=== PATIENT | male | born 1945 | race Caucasian/White ===

== ENCOUNTER 2018-09-20 14:06 | Outpatient (CLI) | payer MEDICARE, OTHER, SELFPAY ==
[2018-09-20 15:55] LABS: CREATININE 1.02 mg/dL (0.70-1.30)
== END 2018-09-20 14:26 ==
PROVIDERS: PCP Emergency Medicine; Visit Provider Surgery Vascular Surgery
DX: I71.01 Dissection of thoracic aorta (principal)
CPT/HCPCS: 36415; 82565

== ENCOUNTER 2018-12-20 13:58 | Outpatient (CLI) | payer MEDICARE, OTHER, SELFPAY ==
--- NOTE | 2018-12-20 13:45 | DI.RAD_ITS ---
SYMPTOM/DIAGNOSIS: LT SHOULDER AND SCAPULA PAIN LEFT SHOULDER: There is deformity of the distal clavicle which could be related to an old fracture. There is spurring at the undersurface of the acromion. There is mild spurring at the glenoid. The glenohumeral joint space is well maintained. A stent is noted in the aorta. IMPRESSION: Mild degenerative changes.
== END 2018-12-20 14:18 ==
PROVIDERS: PCP Emergency Medicine; Referring Provider Emergency Medicine; Visit Provider Student in an Organized Health Care Education/Training Program
DX: M19.012 Primary osteoarthritis, left shoulder; M75.82 Other shoulder lesions, left shoulder
CPT/HCPCS: 20610; 99202; 99214; 73030; J1040

== ENCOUNTER → 2019-01-31 13:13 | Outpatient (BNVA) | payer MEDICARE, OTHER, SELFPAY | PROVIDERS: PCP Emergency Medicine; Referring Provider Emergency Medicine; Visit Provider Student in an Organized Health Care Education/Training Program | DX: M25.512 Pain in left shoulder (principal); M75.82 Other shoulder lesions, left shoulder | CPT/HCPCS: 99212; 99213 ==

== ENCOUNTER → 2019-03-14 12:53 | Outpatient (BNVA) | payer MEDICARE, OTHER, SELFPAY | PROVIDERS: PCP Emergency Medicine; Referring Provider Emergency Medicine; Visit Provider Student in an Organized Health Care Education/Training Program | DX: M25.512 Pain in left shoulder (principal); M75.82 Other shoulder lesions, left shoulder | CPT/HCPCS: 99212; 99213 ==

== ENCOUNTER → 2019-07-18 14:21 | Outpatient (BNVA) | payer MEDICARE, OTHER, SELFPAY | PROVIDERS: PCP Emergency Medicine; Referring Provider Emergency Medicine; Visit Provider Student in an Organized Health Care Education/Training Program | DX: M75.82 Other shoulder lesions, left shoulder (principal); M75.22 Bicipital tendinitis, left shoulder; Z98.890 Other specified postprocedural states | CPT/HCPCS: 20610; 99213; J1040 ==

== ENCOUNTER → 2019-09-05 13:39 | Outpatient (BNVA) | payer MEDICARE, OTHER, SELFPAY | PROVIDERS: PCP Emergency Medicine; Referring Provider Emergency Medicine; Visit Provider Student in an Organized Health Care Education/Training Program | DX: M75.22 Bicipital tendinitis, left shoulder (principal); M19.012 Primary osteoarthritis, left shoulder; M75.82 Other shoulder lesions, left shoulder | CPT/HCPCS: 99213 ==

== ENCOUNTER → 2019-11-07 13:33 | Outpatient (BNVA) | payer MEDICARE, OTHER, SELFPAY | PROVIDERS: PCP Emergency Medicine; Referring Provider Emergency Medicine; Visit Provider Student in an Organized Health Care Education/Training Program | DX: M75.22 Bicipital tendinitis, left shoulder (principal) | CPT/HCPCS: 99213 ==

== ENCOUNTER 2020-08-09 01:43 | Outpatient (CLI) | payer MEDICARE, OTHER, SELFPAY ==
--- NOTE | 2020-08-09 08:15 | DI.RAD_ITS ---
EXAM: RF JOINT INJECTION FLUORO GUID CLINICAL HISTORY: L SHOULDER INJ UNDER FLUORO,BICEPS TENDINITIS, LT SHOULDER PAIN,M75.22 TECHNIQUE: 2D and realtime digital imaging was performed. CONTRAST MATERIAL: Refer to procedure report. COMPARISON: No exams were available for comparison FINDINGS: Fluoroscopy was provided for Dr. Hill during the performance of a left shoulder injection. Plea se refer to the procedure report for complete details. Fluoro time: 11 seconds IMPRESSION:
[2020-08-09] MEDS: Bupivacaine 0.5% Pres-Free 10 ML VIAL 5 ML IJ (14:59)
[2020-08-09] MEDS: methylPREDNISolone ACETATE 80 MG/ML VIAL IM (15:00)
[2020-08-09] MEDS: Omnipaque 300 MG/ML 10 ML BTL IJ (15:01)
--- NOTE | 2020-08-09 23:18 | W.PROCNOTE ---
Date of service: 08/09/20 Time of Service: 14:18 Procedure Note Date of procedure: 08/09/20 Procedure: Right Shoulder Injection Surgeon/Proceduralist/Physician: Bulmaro Hill Procedure Diagnosis: Left Rotator Cuff Tendinitis Procedure Indications: Travis has had persistent pain of the LEFT shoulder. Noninvasive measures have been tried. To serve as both diagnostic and therapeutic, an injection under fluoroscopy was recommended. I had discussed the risks of the procedure and the patient elected to proceed. Procedure Description: Travis was greeted in the flouroscopy room. The correct side was identified and the consent was reviewed with the patient and signed. The patient was then placed in the supine position on the fluoroscopy table. The LEFT shoulder was then prepped with Chloraprep. The anterior injection starting point was identiifed by bony landmarks and fluoroscopy. The skin and soft tissue in the tract of the injection was anesthetized with 1% Lidocaine. A spinal needle was then inserted deep into the shoulder joint at the level of the recess between the glenoid and superior humeral head. A small amount of Omnipaque solution was injected to confirm intraarticular placement. Once confirmed, the shoulder was injected with 4cc of 0.5% Bupivicaine and 80mg of Depo-Medrol. A bandaid was placed on the injection site. The patient tolerated the procedure well and noted improvement in pre-injection pain.
== END 2020-08-09 02:03 ==
PROVIDERS: PCP Emergency Medicine; Visit Provider Student in an Organized Health Care Education/Training Program
DX: M75.82 Other shoulder lesions, left shoulder (principal); M25.552 Pain in left hip
CPT/HCPCS: 20610; 77002; J1040

== ENCOUNTER → 2020-09-10 11:01 | Outpatient (BNVA) | payer MEDICARE, OTHER, SELFPAY | PROVIDERS: PCP Emergency Medicine; Referring Provider Emergency Medicine; Visit Provider Student in an Organized Health Care Education/Training Program | DX: M75.22 Bicipital tendinitis, left shoulder (principal); M19.012 Primary osteoarthritis, left shoulder; M75.82 Other shoulder lesions, left shoulder; Z98.890 Other specified postprocedural states | CPT/HCPCS: 99212 ==

== ENCOUNTER 2020-11-16 14:08 | Outpatient (CLI) | payer MEDICARE, OTHER, SELFPAY ==
[2020-11-18 10:32] LABS: COVID-19 RT-PCR Result NEGATIVE (Negative)
== END 2020-11-16 14:28 ==
PROVIDERS: PCP Emergency Medicine; Visit Provider Emergency Medicine
DX: Z20.822 Contact with and (suspected) exposure to COVID-19 (principal)
CPT/HCPCS: U0003

== ENCOUNTER 2020-11-21 01:52 | Outpatient (CLI) | payer MEDICARE, OTHER, SELFPAY ==
--- NOTE | 2020-11-21 12:32 | DI.RAD_ITS ---
EXAM: XR CHEST 2V PA LATERAL INDICATION: Cough,R05. COMPARISON: CT CHEST WITH CONTRAST from 09/15/2017 CT from 09/15/2017 CT CHEST WITH CONTRAST from 09/15/2017 TECHNIQUE: 2D digital imaging was performed. FINDINGS: Heart size is within normal limits. A stent is again noted from the aortic arch through the the desc ending aorta. There is minimal linear scarring at the lung bases. The lungs are otherwise clear. N o infiltrate or effusion is seen. IMPRESSION: No acute abnormality. DATA REPOSITORY: RADIATION DOSE DELIVERED:
== END 2020-11-21 02:12 ==
PROVIDERS: PCP Emergency Medicine; Visit Provider Emergency Medicine
DX: R05 Cough (principal)
CPT/HCPCS: 71046

== ENCOUNTER 2020-11-21 03:15 | Outpatient (CLI) | payer MEDICARE, OTHER, SELFPAY ==
[2020-11-21 11:56] LABS: HCT 31.8 % (40.0-50.0); HGB 10.6 g/dL (13.5-17.5); MCH 33.9 pg (27.0-33.0); MCHC 33.3 % (32.0-36.0); MCV 101.6 fL (80-95); MPV 11.9 fL (8.0-11.0); Platelet Count 333 10^3/uL (130-400); RBC 3.13 10^6/uL (4.36-5.78); RDW 17.1 % (11.8-14.1); RDW-SD 63.7 fL; WBC 9.26 10^3/uL (4.4-10.8)
[2020-11-21 13:33] LABS: ALT 29 U/L (16-63); AST 20 U/L (15-37); Albumin 3.9 g/dL (3.4-5.0); Alkaline Phosphatase 92 U/L (46-116); Anion Gap 6.7 mmol/L (3-11); BUN 18 mg/dL (7-18); Bilirubin, Total 2.1 mg/dL (0.2-1.0); CO2 28.3 mmol/L (21.0-32.0); CREATININE 1.32 mg/dL (0.70-1.30); Calcium 8.7 mg/dL (8.5-10.1); Chloride 104 mmol/L (98-107); Estimated GFR 53.02 (mL/min/1.73m2); Glucose 140 mg/dL (74-106); Potassium 4.1 mmol/L (3.5-5.1); Sodium 139 mmol/L (136-145); Total Protein 6.7 g/dL (6.4-8.2)
[2020-11-21 14:26] LABS: Folate 18.2 ng/mL (8.6-20.0); Vitamin B12 988 pg/mL (193-986)
[2020-11-21 14:44] LABS: LDH 171 U/L (85-227)
[2020-11-24 09:28] LABS: Methylmalonic Acid 0.28 nmol/mL (<=0.40)
== END 2020-11-21 03:35 ==
PROVIDERS: PCP Emergency Medicine; Visit Provider Emergency Medicine
DX: D64.9 Anemia, unspecified (principal); R05 Cough
CPT/HCPCS: 36415; 80053; 80186; 85027; 71046; 82607; 82746; 83615; 86140

== ENCOUNTER 2021-01-10 02:47 | Outpatient (CLI) | payer MEDICARE, OTHER, SELFPAY ==
[2021-01-10 12:50] LABS: Abs Immature Grans 0.03 10^3/uL (0.0-0.06); Absolute Basophil Count 0.12 10^3/uL (0.0-0.2); Absolute Eosinophil Count 0.07 10^3/uL (0.0-0.7); Absolute Lymphocyte Count 1.54 10^3/uL (1.2-3.4); Absolute Neutrophil Count 5.12 10^3/uL (1.2-6.7); Basophils % 1.6; Eosinophils % 0.9; HCT 31.2 % (40.0-50.0); HGB 10.5 g/dL (13.5-17.5); Immature Grans % 0.4; Lymphocytes % 20.1; MCH 34.8 pg (27.0-33.0); MCHC 33.7 % (32.0-36.0); MCV 103.3 fL (80-95); MPV 11.4 fL (8.0-11.0); Monocytes % 10.4; Neutrophils % 66.6; Nucleated RBC 1 %; Platelet Count 298 10^3/uL (130-400); RBC 3.02 10^6/uL (4.36-5.78); RDW 17.2 % (11.8-14.1); RDW-SD 66.1 fL; Reticulocyte 1.4 % (0.5-2.4); WBC 7.68 10^3/uL (4.4-10.8)
[2021-01-10 13:43] LABS: Iron 190 ug/dL (65-175); Total Iron Binding Capacity 311 ug/dL (250-450); Transferrin Sat 61 % (20-55)
[2021-01-10 14:06] LABS: Ferritin 323 ng/mL (26-388); TSH 2.43 uIU/mL (0.36-3.74)
[2021-01-10 14:19] LABS: LDH 162 U/L (85-227)
[2021-01-11 12:40] LABS: Albumin 62.3 % (55.8-66.1); Total Protein 6.8 g/dL (6.3-8.2)
[2021-01-11 18:04] LABS: Erythropoietin 23.9 mIU/mL (2.6 - 18.5)
== END 2021-01-10 02:48 | disposition home or self-care (01) ==
PROVIDERS: PCP Emergency Medicine; Visit Provider Internal Medicine Hematology & Oncology
DX: D64.9 Anemia, unspecified (principal)
CPT/HCPCS: 36415; 82668; 82728; 83540; 83550; 83615; 84165; 84443; 85025; 85045; 86880

== ENCOUNTER 2021-04-11 02:45 | Outpatient (CLI) | payer MEDICARE, OTHER, SELFPAY ==
[2021-04-11 13:10] LABS: Abs Immature Grans 0.03 10^3/uL (0.0-0.06); Absolute Basophil Count 0.16 10^3/uL (0.0-0.2); Absolute Eosinophil Count 0.22 10^3/uL (0.0-0.7); Absolute Lymphocyte Count 1.67 10^3/uL (1.2-3.4); Absolute Monocyte Count 0.91 10^3/uL (0.1-0.8); Absolute Neutrophil Count 8.12 10^3/uL (1.2-6.7); Basophils % 1.4; HCT 31.3 % (40.0-50.0); HGB 10.5 g/dL (13.5-17.5); Immature Grans % 0.3; MCH 34.3 pg (27.0-33.0); MCHC 33.5 % (32.0-36.0); MCV 102.3 fL (80-95); Monocytes % 8.2; Neutrophils % 73.1; Nucleated RBC 0 %; Platelet Count 302 10^3/uL (130-400); RBC 3.06 10^6/uL (4.36-5.78); RDW 17.5 % (11.8-14.1); RDW-SD 66.4 fL; WBC 11.11 10^3/uL (4.4-10.8)
== END 2021-04-11 02:46 | disposition home or self-care (01) ==
LOC: LBO 02:45
PROVIDERS: PCP Emergency Medicine; Visit Provider Internal Medicine Hematology & Oncology
DX: D64.9 Anemia, unspecified (principal)
CPT/HCPCS: 36415; 85025

== ENCOUNTER 2021-04-25 13:53 | Outpatient (CLI) | payer MEDICARE, OTHER, SELFPAY ==
[2021-04-25 14:34] LABS: Abs Immature Grans 0.03 10^3/uL (0.0-0.06); Absolute Basophil Count 0.16 10^3/uL (0.0-0.2); Absolute Eosinophil Count 0.14 10^3/uL (0.0-0.7); Absolute Lymphocyte Count 1.93 10^3/uL (1.2-3.4); Absolute Monocyte Count 0.83 10^3/uL (0.1-0.8); Absolute Neutrophil Count 6.63 10^3/uL (1.2-6.7); Basophils % 1.6; Eosinophils % 1.4; HCT 32.3 % (40.0-50.0); HGB 10.9 g/dL (13.5-17.5); Immature Grans % 0.3; Lymphocytes % 19.9; MCH 34.9 pg (27.0-33.0); MCHC 33.7 % (32.0-36.0); MCV 103.5 fL (80-95); MPV 11.6 fL (8.0-11.0); Monocytes % 8.5; Neutrophils % 68.3; Nucleated RBC 0 %; Platelet Count 349 10^3/uL (130-400); RBC 3.12 10^6/uL (4.36-5.78); RDW 17.5 % (11.8-14.1); RDW-SD 66.3 fL; WBC 9.72 10^3/uL (4.4-10.8)
[2021-04-25 15:33] LABS: ALT 20 U/L (16-63); AST 15 U/L (15-37); Albumin 4.1 g/dL (3.4-5.0); Alkaline Phosphatase 101 U/L (46-116); Anion Gap 5.6 mmol/L (3-11); BUN 14 mg/dL (7-18); CO2 28.4 mmol/L (21.0-32.0); CREATININE 1.1 mg/dL (0.70-1.30); Chloride 106 mmol/L (98-107); Glucose 109 mg/dL (74-106); Potassium 4.4 mmol/L (3.5-5.1); Sodium 140 mmol/L (136-145); Total Protein 7.2 g/dL (6.4-8.2)
[2021-04-27 13:21] LABS: Erythropoietin 22.6 mIU/mL (2.6 - 18.5)
== END 2021-04-25 13:54 | disposition home or self-care (01) ==
LOC: LBO 14:00
PROVIDERS: PCP Emergency Medicine; Visit Provider Internal Medicine Hematology & Oncology
DX: D53.9 Nutritional anemia, unspecified (principal)
CPT/HCPCS: 36415; 80053; 82668; 85025

== ENCOUNTER 2021-05-08 13:01 | Outpatient (REF) | payer MEDICARE, OTHER, SELFPAY ==
[2021-05-13 10:23] LABS: 2-Hydroxy Ethyl Flurazepam Not Detected ng/mL (Cutoff: 10); 3,4-methylenedioxyamphetamine Not Detected ng/mL (Cutoff: 100); 3,4-methylenedioxyethylampheta Not Detected ng/mL (Cutoff: 100); 3,4-methylenedioxymethamphetam Not Detected ng/mL (Cutoff: 100); 6-monoacetylmorphine Not Detected ng/mL (Cutoff: 25); Alpha-Hydroxy Midazolam Not Detected ng/mL (Cutoff: 10); Alpha-Hydroxy Triazolam Not Detected ng/mL (Cutoff: 10); Alpha-Hydroxyalprazolam Not Detected ng/mL (Cutoff: 10); Alpha-OH-alprazolam Glucuronid Not Detected ng/mL (Cutoff: 50); Alprazolam Not Detected ng/mL (Cutoff: 10); Amphetamine Not Detected ng/mL (Cutoff: 100); Barbiturates Negative ng/mL (Cutoff: 200); Buprenorphine Not Detected ng/mL (Cutoff: 5); Chlordiazepoxide Not Detected ng/mL (Cutoff: 10); Clobazam Not Detected ng/mL (Cutoff: 10); Clonazepam Not Detected ng/mL (Cutoff: 10); Cocaine Negative ng/mL (Cutoff: 150); Codeine Not Detected ng/mL (Cutoff: 25); Comment Normal; Creatinine, U 110.5 mg/dL; Diazepam Not Detected ng/mL (Cutoff: 10); Dihydrocodeine Not Detected ng/mL (Cutoff: 25); EDDP Not Detected ng/mL (Cutoff: 25); Ephedrine Not Detected ng/mL (Cutoff: 100); Fentanyl Not Detected ng/mL (Cutoff: 2); Flurazepam Not Detected ng/mL (Cutoff: 10); Hydrocodone Not Detected ng/mL (Cutoff: 25); Hydromorphone Not Detected ng/mL (Cutoff: 25); Hydromorphone-3-beta-glucuroni Not Detected ng/mL (Cutoff: 100); Lorazepam Not Detected ng/mL (Cutoff: 10); Lorazepam Glucuronide Not Detected ng/mL (Cutoff: 50); Meperidine Not Detected ng/mL (Cutoff: 25); Methadone Not Detected ng/mL (Cutoff: 25); Methamphetamine Not Detected ng/mL (Cutoff:100); Methylphenidate Not Detected ng/mL (Cutoff: 20); Midazolam Not Detected ng/mL (Cutoff: 10); Morphine Not Detected ng/mL (Cutoff: 25); N-Desmethylclobazam Not Detected ng/mL (Cutoff: 200); N-desmethyltapentadol Not Detected ng/mL (Cutoff: 50); Naloxone Not Detected ng/mL (Cutoff: 25); Norbuprenorphine Not Detected ng/mL (Cutoff: 5); Norfentanyl Not Detected ng/mL (Cutoff: 2); Norhydrocodone Not Detected ng/mL (Cutoff: 25); Normeperidine Not Detected ng/mL (Cutoff: 25); Noroxycodone Not Detected ng/mL (Cutoff: 25); Noroxymorphone Not Detected ng/mL (Cutoff: 25); O-desmethyltramadol Not Detected ng/mL (Cutoff: 25); Oxazepam Glucuronide Not Detected ng/mL (Cutoff: 50); Phencyclidine (PCP) Not Detected ng/mL (Cutoff: 20); Phentermine Not Detected ng/mL (Cutoff: 100); Prazepam Not Detected ng/mL (Cutoff: 10); Propoxyphene Not Detected ng/mL (Cutoff: 25); Pseudoephedrine Not Detected ng/mL (Cutoff: 100); Ritalinic Acid Not Detected ng/mL (Cutoff: 100); Specific Gravity 1.011; Tapentadol Not Detected ng/mL (Cutoff: 25); Temazepam Not Detected ng/mL (Cutoff: 10); Temazepam Glucuronide Not Detected ng/mL (Cutoff: 50); Tetrahydrocannabinol Negative ng/mL (Cutoff: 50); Tramadol Not Detected ng/mL (Cutoff: 25); Triazolam Not Detected ng/mL (Cutoff: 10); Zolpidem Phenyl-4-Carboxy acid Not Detected ng/mL (Cutoff: 10)
== END 2021-05-08 13:02 | disposition home or self-care (01) ==
LOC: LBN 13:01
PROVIDERS: PCP Emergency Medicine; Visit Provider Nurse Practitioner Family
DX: M54.6 Pain in thoracic spine (principal); M54.2 Cervicalgia; M25.512 Pain in left shoulder; Z79.899 Other long term (current) drug therapy
CPT/HCPCS: 80307; 80347; 80364

== ENCOUNTER 2022-07-04 08:54 | Day surgery (SDC) | payer MEDICARE, SELFPAY ==
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
[2022-07-04 09:20] VITALS: BP 189/72; PULSE 57; RESP 16; TEMP 36.5; O2SAT 98
[2022-07-04] MEDS: Tropicam./Phenyleph. (1/2.5%) 5 ML BTL OD ×3 (09:29→09:39)
[2022-07-04 09:43] VITALS: BMI 26.9
[2022-07-04] MEDS: Balanced Salt Soln.-PLUS 500 ML BAG (10:10)
[2022-07-04] MEDS: Tetracaine 0.5% 4 ML BTL OD (10:10)
[2022-07-04] MEDS: Lidocaine 1% Pres-Free 5 ML VIAL (10:10)
[2022-07-04] MEDS: Lidocaine 2% Jelly 6 ML SYR (10:12)
[2022-07-04] MEDS: Povidone-Iodine Ophth 30 ML BTL (10:13)
[2022-07-04] MEDS: Trypan Blue 0.06% 0.5 ML SYR (10:14)
[2022-07-04] MEDS: Duovisc Viscoelastic System EACH 1 EACH (10:15)
[2022-07-04 10:33] VITALS: BP 189/60; PULSE 54; RESP 16; TEMP 36.7; O2SAT 98
--- NOTE | 2022-07-04 10:33 | W.PM.DSUDISC ---
Discharge Plan Disposition Patient Disposition: HOME Condition: Good Discharge Details Attending Provider: Zachary Henriquez Primary Care Provider: Nicole Pozo Home Meds and New Rx's Prescriptions: No Action omega-3 fatty acids [Fish Oil Concentrate] 1,000 mg capsule 1,000 mg PO DAILY loratadine [Claritin] 10 MG tablet 1 tab PO DAILY PRN cimetidine 200 MG tablet 1 - 2 tab PO DAILY Label Comments: 06/29/15 takes prn. mdh acetaminophen [Tylenol Extra Strength] 500 MG tablet 500 mg PO TID Label Comments: 04/22/16 Takes PRN. LR omeprazole magnesium [Prilosec OTC] 20 MG tablet,delayed release (DR/EC) 20 mg PO DAILY Qty: 30 6RF magnesium oxide 500 MG capsule 500 mg PO DAILY Pqgiuuaa-Ijznxh-QIU with vit D 1 EACH tablet 1 ea PO DAILY fluticasone propionate [Flonase Allergy Relief] 50 mcg/actuation spray,suspension 2 spray NS DAILY Qty: 16 6RF metoprolol succinate [Toprol XL] 100 mg tablet extended release 24 hr 50 mg PO DAILY Qty: 90 3RF Discharge Instructions Stand Alone Forms: Post-op Topical Cataract, Delvis Da Silva ([facility]U) Discharge Orders Discharge Orders: Discharge Order (Routine); Ordered 07/04/22 Ordered By: Zachary Henriquez DS: Diagnosis Discharge Diagnosis (1) Cortical cataract of right eye: Status: Resolved (2) Nuclear sclerotic cataract of right eye: Status: Resolved (3) Posterior subcapsular age-related cataract, right eye: Status: Resolved
--- NOTE | 2022-07-04 10:35 | ROE_ITS ---
Date of service: 07/04/22 Time of Service: 10:35 Operative Note Operative Note DATE OF PROCEDURE: 07/04/22 PRE-OP DIAGNOSIS: Dense nuclear/cortical/posterior subcapsular cataract, right eye Poor red reflex, right eye secondary to cataract POST-OP DIAGNOSIS: same PROCEDURE: Cataract extraction using phacoemulsification with intraocular lens implant, right eye SURGEON: Zachary Henriquez ANESTHESIA TYPE: Local By Surgeon and MAC Refer to Anesthesia Record ESTIMATED BLOOD LOSS: 0 PATHOLOGY: none sent COMPLICATIONS: None Patient was transported to: same day Patient's condition: stable Implants: Toni Clareon [id number] Indications: Progressive decreased vision due to cataract, right eye Procedure Description: CATARACT SURGERY OPERATIVE REPORT PREOPERATIVE DIAGNOSIS: Dense nuclear/cortical/posterior subcapsular cataract, right eye Poor red reflex, right eye secondary to cataract POSTOPERATIVE DIAGNOSIS: Same OPERATION: Cataract extraction using phacoemulsification with posterior chamber intraocular lens implant, right eye. IOL: IOL Central Sterilization Technician/Model: Toni Clareon [id number] IOL Power: + 16.5 diopters IOL Serial Number: [id number] Optic Diameter: 6.0mm Haptic/Overall Diameter: 13.0mm PHACO INFO: Toni Centurion Vision System with OZil and Active Fluidics Cumulative Dispersed Energy (CDE): 21.89 seconds SURGEON: Zachary Henriquez MD, SUMAN ANESTHESIA: Monitored Anesthesia Care (MAC), with local sub-tenon's anesthetic infiltration COMPLICATIONS: None SPECIMENS: None INDICATIONS FOR PROCEDURE: The patient is a 76-year-old gentleman with history of progressive decreased vision in his right eye. He is noted to have a dense nuclear/cortical/posterior subcapsular cataract. The option of cataract surgery was offered to the patient and he felt he was significantly symptomatic that he wished to proceed. PROCEDURE: The correct surgical eye was identified and marked as the right eye and the pupil was dilated in the preoperative area using mydriatics and cycloplegics. The dilated pupil size was 6.5 mm. Oral sedation was administered in the form of an Imprimis MKO Melt (midazolam 3mg/ketamine 25mg/ondansetron 2mg). The patient was brought to the operating room where cardiopulmonary monitoring was instituted and surgical time-out was performed, confirming the correct operative eye and IOL power. Topical anesthesia was administered and ophthalmic povidone-iodine 5% was inst illed into the conjunctival fornices. Lidocaine gel was applied to the cornea and the jackelin-ocular area was prepped with Betadine 10% solution and draped in the usual sterile fashion for intraocular surgery, including an aperture drape. A Tegaderm transparent film dressing was cut in half and used to cover the lashes and lid margins. Care was taken to sequester the lashes and lid margins under the Tegaderm dressing. A lid speculum was placed between the lids of the operative eye and the Adrienne-Gregg operating microscope was maneuvered into position. Mary scissors were then used to make a conjunctival buttonhole approximately 6mm posterior to the limbus in the inferonasal quadrant. Blunt dissection was carried out to expose bare sclera, and a blunt-tipped sub-tenon?s anesthesia cannula was introduced and passed posteriorly along the globe where non- preserved plain lidocaine was injected into posterior sub-Tenon?s space. A sideport knife was used to make a paracentesis port inferiortemporally. Air was injected into the anterior chamber, followed by VisionBlue, which was painted over the lens capsule. Intraocular phenylephrine/lidocaine was injected into the anterior chamber. The anterior chamber was then filled with viscoelastic. A keratome knife was used to construct a two--plane near-clear corneal tunnel extending 2.0mm into clear cornea in the superiortemporal position.. A flap was raised on the anterior capsule and capsulorhexis forceps were used to complete a continuous curvilinear capsulorhexis of 5.0 mm. Balanced salt solution was then used to perform cortical cleaving hydrodissection and nuclear hydrodelineation until the lens could be freely rotated within the capsular bag. The lens nucleus was then disassembled and removed within the capsular bag and iris plane using phacoemulsification. Residual cortical material was removed using the I/A handpiece. The posterior capsule was carefully polished to remove as much residual lens epithelial cells as safely possible. The capsular bag was then inflated and the anterior chamber deepened with viscoelastic. The lens implant described above was inserted into the capsular bag using the Toni Autonome Injector. A Kuglen hook was used to dial the IOL into position. Residual viscoelastic was then removed first from posterior to the IOL, then from the anterior chamber using the I/A handpiece. The lens implant was noted to center nicely within the capsular bag. The incisions were stromally hydrated, and the anterior chamber was reformed using BSS. Then 0.5cc of moxifloxacin 1.0mg/ml were injected into the capsular bag and anterior chamber. The incisions were checked with a Weck spear and found to be secure. Several drops of ophthalmic povidone-iodine 5% were then applied to the eye followed by two drops of Imprimis combination prednisolone/moxifloxacin/nepafenac solution. The drapes were removed and a clear plastic protective eye shield was placed over the eye. The patient was then returned to Same Day Surgery in stable condition.
[2022-07-04 11:03] VITALS: BP 166/65; PULSE 49; RESP 16; TEMP 36.5; O2SAT 96
--- NOTE | 2022-07-04 12:07 | W.ANESPOSTOP ---
Postoperative Evaluation Date, Time and Location Date Performed: 07/04/22 Time Performed: 12:07 Patient Location: Day Surgery Unit Vital Signs Most Recent Imported Vital Signs: Most Recent Vital Signs Temp Pulse Resp BP Pulse Ox 36.5 C 49 L 16 166/65 H 96 07/04/22 11:03 07/04/22 11:03 07/04/22 11:03 07/04/22 11:03 07/04/22 11:03 Pain Score Most Recent Pain Score: Most Recent Pain Score Pain Level 0 07/04/22 11:03 Assessment Mental Status: Awake (Alert & Oriented to Patient Baseline) Airway and Respiratory Function: Patent airway with normal (patient baseline) respiratory exam Cardiovascular Function: Hemodynamically Stable Hydration Status: Adequately Hydrated Nausea & Vomiting: No Nausea or Vomiting Pain: Pt. Denies Any Pain Peripheral Nerve Block: Other (Local by Dr. Henriquez) Postoperative Comments:: Patient seen earlier today
== END 2022-07-04 11:13 | disposition home or self-care (01) ==
PROVIDERS: PCP Family Medicine; Visit Provider Ophthalmology
PROC: (CPT 66984; principal; 2022-07-04 10:30)
DX: H25.041 Posterior subcapsular polar age-related cataract, right eye (principal); H26.8 Other specified cataract
CPT/HCPCS: 66984; V2632

== ENCOUNTER 2022-07-18 08:09 | Day surgery (SDC) | payer MEDICARE, SELFPAY ==
[2022-07-18 08:15] VITALS: BP 183/55; PULSE 57; RESP 18; TEMP 36.4; O2SAT 97
[2022-07-18] MEDS: Tropicam./Phenyleph. (1/2.5%) 5 ML BTL OS ×3 (08:32→08:42)
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
[2022-07-18 09:16] VITALS: BMI 27.5
[2022-07-18] MEDS: Balanced Salt Soln.-PLUS 500 ML BAG (09:30)
[2022-07-18] MEDS: Tetracaine 0.5% 4 ML BTL OS (09:30)
[2022-07-18] MEDS: Lidocaine 2% Jelly 6 ML SYR (09:31)
[2022-07-18] MEDS: Duovisc Viscoelastic System EACH 1 EACH (09:31)
[2022-07-18] MEDS: Trypan Blue 0.06% 0.5 ML SYR (09:33)
[2022-07-18] MEDS: Povidone-Iodine Ophth 30 ML BTL (09:33)
[2022-07-18 09:46] VITALS: BP 150/56; PULSE 49; RESP 16; TEMP 36; O2SAT 97
--- NOTE | 2022-07-18 09:46 | W.PM.DSUDISC ---
Discharge Plan Disposition Patient Disposition: HOME Condition: Good Discharge Details Attending Provider: Zachary Henriquez Primary Care Provider: Nicole Pozo Home Meds and New Rx's Prescriptions: No Action omega-3 fatty acids [Fish Oil Concentrate] 1,000 mg capsule 1,000 mg PO DAILY loratadine [Claritin] 10 MG tablet 1 tab PO DAILY PRN cimetidine 200 MG tablet 1 - 2 tab PO DAILY Label Comments: 06/29/15 takes prn. mdh acetaminophen [Tylenol Extra Strength] 500 MG tablet 500 mg PO TID Label Comments: 04/22/16 Takes PRN. LR omeprazole magnesium [Prilosec OTC] 20 MG tablet,delayed release (DR/EC) 20 mg PO DAILY Qty: 30 6RF magnesium oxide 500 MG capsule 500 mg PO DAILY Mwdzeopj-Qzuqxu-HQL with vit D 1 EACH tablet 1 ea PO DAILY fluticasone propionate [Flonase Allergy Relief] 50 mcg/actuation spray,suspension 2 spray NS DAILY Qty: 16 6RF metoprolol succinate [Toprol XL] 100 mg tablet extended release 24 hr 50 mg PO DAILY Qty: 90 3RF Discharge Instructions Stand Alone Forms: Post-op Topical Cataract, Delvis Da Silva ([facility]) Discharge Orders Discharge Orders: Discharge Order (Routine); Ordered 07/18/22 Ordered By: Zachary Henriquez DS: Diagnosis Discharge Diagnosis (1) Cortical cataract of left eye: Status: Resolved (2) Nuclear sclerotic cataract of left eye: Status: Resolved (3) Posterior subcapsular age-related cataract of left eye: Status: Resolved
--- NOTE | 2022-07-18 09:48 | ROE_ITS ---
Date of service: 07/18/22 Time of Service: 09:48 Operative Note Operative Note DATE OF PROCEDURE: 07/18/22 PRE-OP DIAGNOSIS: Nuclear/cortical/posterior subcapsular cataract, left eye poor red reflex, left eye secondary to cataract POST-OP DIAGNOSIS: same PROCEDURE: Cataract extraction using phacoemulsification with intraocular lens implant, left eye SURGEON: Zachary Henriquez ANESTHESIA TYPE: Local By Surgeon and MAC Refer to Anesthesia Record PATHOLOGY: none sent COMPLICATIONS: None Patient was transported to: same day Patient's condition: stable Implants: Toni Clareon [id number] Indications: Progressive decreased vision due to cataract, left eye Procedure Description: CATARACT SURGERY OPERATIVE REPORT PREOPERATIVE DIAGNOSIS: Nuclear/cortical/posterior subcapsular cataract, left eye Poor red reflex, left eye secondary to cataract POSTOPERATIVE DIAGNOSIS: Same OPERATION: Cataract extraction using phacoemulsification with posterior chamber intraocular lens implant, left eye. Capsular staining with VisionBlue IOL: IOL Underground Distribution Engineer/Model: Toni Clareon [id number] IOL Power: + 16.5 diopters IOL Serial Number: [id number] Optic Diameter: 6.0mm Haptic/Overall Diameter: 13.0mm PHACO INFO: Toni Optimum Interactive USAurion Vision System with OZil and Active Fluidics Cumulative Dispersed Energy (CDE): 12.02 seconds SURGEON: Zachary Henriquez MD, SUMAN ANESTHESIA: Monitored Anesthesia Care (MAC), with local sub-tenon's anesthetic infiltration COMPLICATIONS: None SPECIMENS: None INDICATIONS FOR PROCEDURE: The patient is a 76-year-old gentleman with history of diminished visual acuity in both eyes secondary to the development of bilateral nuclear/cortical/posterior subcapsular cataract. He has already undergone cataract surgery in the right eye and is doing well postoperatively. He now presents for cataract surgery in the left eye. He has a history of myopia and likes to read without glasses. Postoperative refractive target is -2.25 diopters. PROCEDURE: The correct surgical eye was identified and marked as the left eye and the pupil was dilated in the preoperative area using mydriatics and cycloplegics. The dilated pupil size was 7.0 mm. Oral sedation was administered in the form of an Imprimis MKO Melt (midazolam 3mg/ketamine 25mg/ondansetron 2mg). . The patient was brought to the operating room where cardiopulmonary monitoring was instituted and surgical time-out was performed, confirming the correct operative eye and IOL power. Topical anesthesia was administered and ophthalmic povidone-iodine 5% was instilled into the conjunctival fornices. Lidocaine gel was applied to the cornea and the jackelin-ocular area was prepped with Betadine 10% solution and draped in the usual sterile fashion for intraocular surgery, including an aperture drape. A Tegaderm transparent film dressing was cut in half and used to cover the lashes and lid margins. Care was taken to sequester the lashes and lid margins under the Tegaderm dressing. A lid speculum was placed between the lids of the operative eye and the Toni LuxOR Revalia operating microscope was maneuvered into position. Mary scissors were then used to make a conjunctival buttonhole approximately 6mm posterior to the limbus in the inferonasal quadrant. Blunt dissection was carried out to expose bare sclera, and a blunt-tipped sub-tenon?s anesthesia cannula was introduced and passed posteriorly along the globe where non-pre served plain lidocaine was injected into posterior sub-Tenon?s space. A sideport knife was used to make a paracentesis port superior/superiortemporally. Air was injected into the anterior chamber, followed by VisionBlue, which was painted over the lens capsule and then irrigated out with balanced salt solution. Intraocular phenylephrine/lidocaine was injected into the anterior chamber. The anterior chamber was then filled with viscoelastic. A keratome knife was used construct a two-plane near-clear corneal tunnel extending 2.0mm into clear cornea in the temporal position. . A flap was raised on the anterior capsule and capsulorhexis forceps were used to complete a continuous curvilinear capsulorhexis of 5.5 mm. Balanced salt solution was then used to perform cortical cleaving hydrodi ssection and nuclear hydrodelineation until the lens could be freely rotated within the capsular bag. The lens nucleus was then disassembled and removed within the capsular bag and iris plane using phacoemulsification. Residual cortical material was removed using the 45-degree angled silicone I/A tip with 0.3mm port. The posterior capsule was carefully polished to remove as much residual lens epithelial cells as safely possible. The capsular bag was then inflated and the anterior chamber deepened with viscoelastic. The lens implant described above was inserted into the capsular bag using the Toni Autonome Injector. A KuglViximo hook was used to dial the IOL into position. Residual viscoelastic was then removed first from posterior to the IOL, then from the anterior chamber using the I/A handpiece. The lens implant was noted to center nicely within the capsular bag. The incisions were stromally hydrated, and the anterior chamber was reformed using BSS. Then 0.5cc of moxifloxacin 1. 0mg/ml were injected into the capsular bag and anterior chamber. The incisions were checked with a Weck spear and found to be secure. Several drops of ophthalmic povidone-iodine 5% were then applied to the eye followed by two drops of Imprimis combination prednisolone/moxifloxacin/nepafenac solution. The drapes were removed and a clear plastic protective eye shield was placed over the eye. The patient was then returned to [facility] Day Surgery in stable condition.
--- NOTE | 2022-07-18 09:58 | W.ANESPOSTOP ---
Postoperative Evaluation Date, Time and Location Date Performed: 07/18/22 Time Performed: 09:52 Patient Location: Day Surgery Unit Vital Signs Most Recent Imported Vital Signs: Most Recent Vital Signs Temp Pulse Resp BP Pulse Ox 36 C L 49 L 16 150/56 H 97 07/18/22 09:46 07/18/22 09:46 07/18/22 09:46 07/18/22 09:46 07/18/22 09:46 Assessment Mental Status: Awake (Alert & Oriented to Patient Baseline) Airway and Respiratory Function: Patent airway with normal (patient baseline) respiratory exam Cardiovascular Function: Hemodynamically Stable Hydration Status: Adequately Hydrated Nausea & Vomiting: No Nausea or Vomiting Pain: Pt. Denies Any Pain Peripheral Nerve Block: Patient did not receive a nerve block
[2022-07-18 10:11] VITALS: BP 150/56; PULSE 47; RESP 16; TEMP 36; O2SAT 96
--- NOTE | 2022-07-18 10:29 | W.PM.DSUDISC ---
Discharge Plan Disposition Patient Disposition: HOME Condition: Good Discharge Details Attending Provider: Zachary Henriquez Primary Care Provider: Nicole Pozo Home Meds and New Rx's Prescriptions: No Action omega-3 fatty acids [Fish Oil Concentrate] 1,000 mg capsule 1,000 mg PO DAILY loratadine [Claritin] 10 MG tablet 1 tab PO DAILY PRN cimetidine 200 MG tablet 1 - 2 tab PO DAILY Label Comments: 06/29/15 takes prn. mdh acetaminophen [Tylenol Extra Strength] 500 MG tablet 500 mg PO TID Label Comments: 04/22/16 Takes PRN. LR omeprazole magnesium [Prilosec OTC] 20 MG tablet,delayed release (DR/EC) 20 mg PO DAILY Qty: 30 6RF magnesium oxide 500 MG capsule 500 mg PO DAILY Llguwvvo-[id number]-VHW with vit D 1 EACH tablet 1 ea PO DAILY fluticasone propionate [Flonase Allergy Relief] 50 mcg/actuation spray,suspension 2 spray NS DAILY Qty: 16 6RF metoprolol succinate [Toprol XL] 100 mg tablet extended release 24 hr 50 mg PO DAILY Qty: 90 3RF Discharge Instructions Stand Alone Forms: Post-op Topical Cataract, Delvis Da Silva (DSU) Discharge Orders Discharge Orders: Discharge Order (Routine); Ordered 07/18/22 Ordered By: Zachary Henriquez DS: Diagnosis Discharge Diagnosis (1) Cortical cataract of left eye: Status: Resolved (2) Nuclear sclerotic cataract of left eye: Status: Resolved (3) Posterior subcapsular age-related cataract of left eye: Status: Resolved
== END 2022-07-18 10:25 | disposition home or self-care (01) ==
LOC: SUR 08:10
PROVIDERS: PCP Family Medicine; Visit Provider Ophthalmology
PROC: (CPT 66982; principal; 2022-07-18 10:00)
DX: H25.042 Posterior subcapsular polar age-related cataract, left eye (principal); I10 Essential (primary) hypertension; H26.8 Other specified cataract
CPT/HCPCS: 66982; V2632

== ENCOUNTER 2022-11-17 15:09 | Outpatient (CLI) | payer MEDICARE, SELFPAY ==
--- NOTE | 2022-11-17 14:45 | DI.RAD_ITS ---
Exam(s) XR SHOULDER LT COMPLETE 2+V EXAM: XR SHOULDER LT COMPLETE 2+V CLINICAL HISTORY: left shoulder pain. TECHNIQUE: 2D digital imaging was performed. Three views. COMPARISON: CR XR shoulder LT complete 2+V from 12/20/2018 FINDINGS: BONES: No acute fracture is present. No bony destructive lesion is seen. JOINTS: No dislocation present. Mild spurring at AC joint. Chronic appearing bony density adjacent to the distal clavicle superiorly. Mild spurring at glenoid. Glenohumeral joint space is maintained . SOFT TISSUE: Aortic stent. IMPRESSION: No acute abnormality. DATA REPOSITORY: RADIATION DOSE DELIVERED:
== END 2022-11-17 15:10 | disposition home or self-care (01) ==
LOC: DIORS 15:09
PROVIDERS: PCP Family Medicine; Referring Provider Family Medicine; Visit Provider Physician Assistant
DX: M75.82 Other shoulder lesions, left shoulder (principal); M75.22 Bicipital tendinitis, left shoulder; M19.012 Primary osteoarthritis, left shoulder
CPT/HCPCS: 99213; 73030

== ENCOUNTER → 2022-12-04 12:55 | Outpatient (BNVA) | payer MEDICARE, SELFPAY | PROVIDERS: PCP Family Medicine; Referring Provider Family Medicine; Visit Provider Student in an Organized Health Care Education/Training Program | DX: M75.82 Other shoulder lesions, left shoulder (principal); M19.012 Primary osteoarthritis, left shoulder; M75.22 Bicipital tendinitis, left shoulder | CPT/HCPCS: 20610; J1040 ==

== ENCOUNTER 2023-04-20 16:38 | Outpatient (CLI) | payer MEDICARE, SELFPAY ==
[2023-04-20 14:24] LABS: CREATININE 1.2 mg/dL (0.70-1.30); Estimated GFR 62.67 (mL/min/1.73m2)
== END 2023-04-20 16:39 | disposition home or self-care (01) ==
LOC: LBO 16:39
PROVIDERS: PCP Family Medicine; Visit Provider Surgery
DX: I71.20 Thoracic aortic aneurysm, without rupture, unspecified (principal)
CPT/HCPCS: 36415; 82565

== ENCOUNTER 2023-06-26 14:30 | Outpatient (CLI) | payer MEDICARE, SELFPAY ==
[2023-06-26 12:30] LABS: CREATININE 1.1 mg/dL (0.70-1.30); Estimated GFR 69.57 (mL/min/1.73m2)
== END 2023-06-26 14:31 | disposition home or self-care (01) ==
LOC: LBO 14:31
PROVIDERS: PCP Family Medicine; Visit Provider Surgery
DX: I71.20 Thoracic aortic aneurysm, without rupture, unspecified (principal)
CPT/HCPCS: 36415; 82565

== ENCOUNTER 2023-07-28 01:48 | Outpatient (CLI) | payer MEDICARE, SELFPAY ==
[2023-07-28 11:37] LABS: ALT 30 U/L (16-63); AST 25 U/L (15-37); Albumin 3.7 g/dL (3.4-5.0); Alkaline Phosphatase 103 U/L (46-116); Anion Gap 6.9 mmol/L (3-11); BUN 16 mg/dL (7-18); Bilirubin, Total 2.1 mg/dL (0.2-1.0); CO2 27.1 mmol/L (21.0-32.0); CREATININE 1.1 mg/dL (0.70-1.30); Calcium 8.8 mg/dL (8.5-10.1); Calculated LDL 76 mg/dL (<100); Chloride 103 mmol/L (98-107); Cholesterol 136 mg/dL (<200); Estimated GFR 69.57 (mL/min/1.73m2); Glucose 111 mg/dL (74-106); HDL Cholesterol 50 mg/dL (40-60); Magnesium 2.2 mg/dL (1.8-2.4); Potassium 4.2 mmol/L (3.5-5.1); Sodium 137 mmol/L (136-145); TSH (W/Ref FT4) 4.45 uIU/mL (0.36-3.74); Total Protein 7.1 g/dL (6.4-8.2); Triglyceride 50 mg/dL (<150); Vitamin B12 759 pg/mL (193-986)
[2023-07-28 11:53] LABS: FREE T4 0.92 ng/dL (0.76-1.46)
== END 2023-07-28 01:49 | disposition home or self-care (01) ==
LOC: LBO 01:48
PROVIDERS: PCP Family Medicine; Visit Provider Family Medicine
DX: K21.9 Gastro-esophageal reflux disease without esophagitis (principal); I10 Essential (primary) hypertension; D64.9 Anemia, unspecified; E78.5 Hyperlipidemia, unspecified; F41.8 Other specified anxiety disorders; M45.9 Ankylosing spondylitis of unspecified sites in spine
CPT/HCPCS: 36415; 80053; 80061; 82607; 83735; 84439; 84443

== ENCOUNTER → 2023-08-20 15:02 | Outpatient (BNVA) | payer MEDICARE, SELFPAY | PROVIDERS: PCP Family Medicine; Referring Provider Family Medicine | DX: M75.82 Other shoulder lesions, left shoulder (principal); M19.012 Primary osteoarthritis, left shoulder; M75.22 Bicipital tendinitis, left shoulder | CPT/HCPCS: 20610; J1040 ==

== ENCOUNTER → 2024-02-29 14:43 | Outpatient (BNVA) | payer MEDICARE, SELFPAY | PROVIDERS: PCP Family Medicine; Referring Provider Family Medicine; Visit Provider Student in an Organized Health Care Education/Training Program | DX: M75.82 Other shoulder lesions, left shoulder (principal); M19.012 Primary osteoarthritis, left shoulder; M75.22 Bicipital tendinitis, left shoulder | CPT/HCPCS: 20610; J1010 ==

== ENCOUNTER → 2024-05-09 10:34 | Outpatient (BNVA) | payer MEDICARE, SELFPAY | PROVIDERS: PCP Family Medicine; Referring Provider Family Medicine; Visit Provider Student in an Organized Health Care Education/Training Program | DX: M75.81 Other shoulder lesions, right shoulder (principal); M75.41 Impingement syndrome of right shoulder; M76.892 Other specified enthesopathies of left lower limb, excluding foot; R29.898 Other symptoms and signs involving the musculoskeletal system | CPT/HCPCS: 20610; 99215; J1010 ==

== ENCOUNTER 2024-07-11 15:43 | Outpatient (CLI) | payer MEDICARE, SELFPAY ==
--- NOTE | 2024-07-11 14:53 | DI.RAD_ITS ---
Exam(s) XR HIP LT COMPLETE AP PELVIS EXAM: XR HIP LT COMPLETE AP PELVIS CLINICAL HISTORY: left hip pain. TECHNIQUE: 2D digital imaging was performed. Three views. COMPARISON: No exams were available for comparison FINDINGS: BONES: No acute fracture is present. No bony destructive lesion is seen. JOINTS: No dislocation present. The joint spaces are maintained. There is bilateral acetabular spu rring. SI joints and pubic symphysis are unremarkable. SOFT TISSUE: Normal. IMPRESSION: Mild degenerative changes of both hips. DATA REPOSITORY: RADIATION DOSE DELIVERED:
== END 2024-07-11 15:44 | disposition home or self-care (01) ==
LOC: DIORS 15:43
PROVIDERS: PCP Family Medicine; Visit Provider Student in an Organized Health Care Education/Training Program
DX: M19.012 Primary osteoarthritis, left shoulder; M75.82 Other shoulder lesions, left shoulder; M76.892 Other specified enthesopathies of left lower limb, excluding foot
CPT/HCPCS: 20610; J1010; 73502

== ENCOUNTER 2024-08-15 01:51 | Outpatient (CLI) | payer MEDICARE, SELFPAY ==
--- NOTE | 2024-08-15 07:15 | DI.CT_ITS ---
Exam(s) CT THORACIC SPINE WO EXAM: CT THORACIC SPINE WO CLINICAL HISTORY: ankylosing spondylitis,m459,back pain,m54.50. TECHNIQUE: Imaging Protocol: Axial computed tomography images with coronal and sagittal reformatted images were created and reviewed. CONTRAST MATERIAL: Intravenous: None COMPARISON: CT CT ANGIOGRAM CHEST AND ABDOMEN W CONTRAST from 02/19/2017 FINDINGS: Bones: No evidence of fracture or listhesis. There is multilevel anterior fusion at the level of the T4-5, T5-6, T6-7, T7-8, and T8-T9 levels with further progression from 2017 and consistent with the diagnosis of ankylosing spondylitis. There is also some calcification evident in the supraspinous li gament posteriorly. There is no scoliosis. Soft tissues: No obvious disc herniations. Aortic endo graft again noted IMPRESSION: Findings consistent with ankylosing spondylitis with multilevel anterior fusion. Exhibits some progr ession when compared to CT images of 02/19/2017. RADIATION DOSE DELIVERED: 1,353.48mGy.cm Total DLP DATA REPOSITORY: All CT scans at this facility are submitted to the National Radiology Data Registry (NRDR) Dose Index Registry (DIR) with the [employer] (A[employer]). RADIATION OPTIMIZATION: All CT scans at this facility use at least one of these dose optimization te chniques: automated exposure control; mA and/or kV adjustment per patient size (includes targeted exa ms where dose is matched to clinical indication); or iterative reconstruction.
--- NOTE | 2024-08-15 07:15 | DI.CT_ITS ---
Exam(s) CT CERVICAL SPINE WO EXAM: CT CERVICAL SPINE WO CLINICAL HISTORY: ankylosing spondylitis,cervical pain,m54.2. TECHNIQUE: Imaging Protocol: Axial computed tomography images with coronal and sagittal reformatted images were created and reviewed COMPARISON: No exams were available for comparison FINDINGS: CERVICAL SPINE: There is no evidence of acute fracture no significant listhesis. There is moderate disc space narrow ing and anterior osseous lipping at C6-7 level noted. No Luschka joint osteophytes at this level. T here is mild narrowing of C5-6 level. No significant prevertebral soft tissue swelling. No significant facet arthropathy. Multiple calcifications are noted in the supraspinous ligament at C5 and C6 levels. There are no bridging syndesmophytes. No significant osseous lesions evident. IMPRESSION: No evidence of cervical spine fracture, malalignment, nor acute compromise of the cervical spinal can al. There is some degenerative disc disease at C5-6 and C6-7 levels as described above. RADIATION DOSE DELIVERED: 429.83mGy.cm Total DLP DATA REPOSITORY: All CT scans at this facility are submitted to the National Radiology Data Registry (NRDR) Dose Index Registry (DIR) with the [employer] (A[employer]). RADIATION OPTIMIZATION: All CT scans at this facility use at least one of these dose optimization te chniques: automated exposure control; mA and/or kV adjustment per patient size (includes targeted exa ms where dose is matched to clinical indication); or iterative reconstruction.
--- NOTE | 2024-08-15 07:15 | DI.CT_ITS ---
Exam(s) CT LUMBAR SPINE WO EXAM: CT LUMBAR SPINE WO CLINICAL HISTORY: anylosing spondylitis,low back pain, m54.50,m45,9. TECHNIQUE: Imaging Protocol: Axial computed tomography images with coronal and sagittal reformatted images were created and reviewed COMPARISON: CT CT THORACIC SPINE WO from 08/15/2024 FINDINGS: Bones: There are no fractures, listhesis, nor pars defects. . there is advanced disc space narrowing at L5-S1 level. No scoliosis. There is partial ankylosis of the sacroiliac joints evident. INDIVIDUAL LEVELS: T12-L1:Normal disc height. No disc herniation nor canal stenosis. Some facet arthropathy. L1-2: Normal disc height. No disc herniation. Central canal dimensions are lower normal. Mild deg enerative changes in the facet joints. Mild bilateral foraminal stenosis. L2-3: Normal disc height. Benign hemangioma is noted in the right side of L2 vertebral body. Some calcification is noted in the posterior annulus. There is mild-moderate central spinal canal stenosi s at this level due to short AP dimensions the pedicles and bulging annulus and some facet arthropath y. L3-4: Normal disc height. Mild posterior annular bulging. Moderate central spinal canal stenosis d ue to the bulging annulus short AP dimensions of the pedicles and mild facet arthropathy. Some degen erative change in the facet joints noted bilaterally mostly due to short AP dimensions of the pedicle s. L4-5: Normal disc height. No disc herniation. Mild-moderate central spinal canal stenosis related to broad annular bulging, short AP dimensions of the pedicles and mild degenerative changes in the fa cet joints. L5-S1: This level exhibits more advanced disc space narrowing and vacuum phenomenon within the dimin ished disc space. Posteriorly there is mild annular bulging without a distinct disc herniation. Rosa Maria tral canal dimensions are lower normal. Mild facet joint degenerative changes. No significant gregory inal stenosis. There is partial ankylosis of the sacroiliac joints. No calcification noted within the inter spinous ligaments. PARASPINAL SOFT TISSUES: Abdominal aortic aneurysm noted. Diameter 3.9 cm. IMPRESSION: 1. Ankylosis of both sacroiliac joints. 2. Multilevel mild-moderate central spinal canal stenosis most prominent L3-4 and L4-5 levels mostly related to short AP dimensions of the pedicles, broad annular bulging and facet arthropathy. 3. L5-S1 findings as above RADIATION DOSE DELIVERED: 1,799.21mGy.cm Total DLP DATA REPOSITORY: All CT scans at this facility are submitted to the National Radiology Data Registry (NRDR) Dose Index Registry (DIR) with the [employer] ([employer]). RADIATION OPTIMIZATION: All CT scans at this facility use at least one of these dose optimization te chniques: automated exposure control; mA and/or kV adjustment per patient size (includes targeted exa ms where dose is matched to clinical indication); or iterative reconstruction.
== END 2024-08-15 02:11 ==
LOC: DI 01:51
PROVIDERS: PCP Family Medicine; Visit Provider Family Medicine
DX: M45.0 Ankylosing spondylitis of multiple sites in spine
CPT/HCPCS: 72125; 72128; 72131

== ENCOUNTER → 2025-03-06 13:45 | Outpatient (BNVA) | payer MEDICARE, SELFPAY | PROVIDERS: PCP Family Medicine; Referring Provider Family Medicine; Visit Provider Physician Assistant | DX: M19.012 Primary osteoarthritis, left shoulder (principal); M75.82 Other shoulder lesions, left shoulder | CPT/HCPCS: 20610; J1010 ==

== ENCOUNTER → 2025-06-05 12:54 | Outpatient (BNVA) | payer MEDICARE, SELFPAY | PROVIDERS: PCP Family Medicine; Referring Provider Family Medicine; Visit Provider Student in an Organized Health Care Education/Training Program | DX: M75.41 Impingement syndrome of right shoulder (principal) | CPT/HCPCS: 20610; J1010 ==

== ENCOUNTER 2025-07-19 04:18 | Outpatient (CLI) | payer MEDICARE, SELFPAY ==
[2025-07-19 14:22] LABS: ALT 27 U/L (16-63); AST 19 U/L (15-37); Albumin 3.6 g/dL (3.4-5.0); Alkaline Phosphatase 101 U/L (46-116); Anion Gap 8.5 mmol/L (3-11); BUN 13 mg/dL (7-18); Bilirubin, Total 2.2 mg/dL (0.2-1.0); CO2 27.5 mmol/L (21.0-32.0); Calcium 9.0 mg/dL (8.5-10.1); Chloride 104 mmol/L (98-107); Estimated GFR 61.90 (mL/min/1.73m2); Glucose 121 mg/dL (74-106); Potassium 4.3 mmol/L (3.5-5.1); Sodium 140 mmol/L (136-145); TSH (W/Ref FT4) 3.80 uIU/mL (0.36-3.74); Total Protein 6.6 g/dL (6.4-8.2); Vitamin B12 681 pg/mL (193-986)
== END 2025-07-19 04:19 | disposition home or self-care (01) ==
LOC: LBO 04:18
PROVIDERS: PCP Family Medicine; Visit Provider Family Medicine
DX: K21.9 Gastro-esophageal reflux disease without esophagitis (principal); E03.9 Hypothyroidism, unspecified; I10 Essential (primary) hypertension
CPT/HCPCS: 36415; 80053; 82607; 84439; 84443

== ENCOUNTER → 2025-09-14 12:51 | Outpatient (BNVA) | payer MEDICARE, SELFPAY | PROVIDERS: PCP Family Medicine; Referring Provider Family Medicine; Visit Provider Student in an Organized Health Care Education/Training Program | DX: M75.82 Other shoulder lesions, left shoulder (principal) | CPT/HCPCS: 20610; J1010 ==